=== PATIENT | female | born 1985 | race Caucasian/White ===

== ENCOUNTER → 2019-03-08 | Outpatient (CLI) | payer OTHER ==
[~2019-03-08] MED LIST: ACCUNEB SO1.25 MG/1 INH; ACETAMINOPHEN325 M1 PO; ADVAIR 100-501 EACH INH; ATIVAN1 MG PO; AZITHROMYCIN 2250 MG PO; DEPAKOTE ER500 MG PO; DEPO-PROVER150 MG/M1 IM; HALOPERIDO50 MG/1 M1 IM; HALOPERIDOL 5 MG5 MG PO; HEMORRHOID OINT60 G1 RECTAL; IBUPROFEN 600600 M1 PO; ICY HOT PAIN70.8 GM TOP; KEPPRA 500 MG500 M1 PO; LOPERAMIDE 2 MG2 MG PO; LORAZEPAM 1 MG T1 M1 PO; LORAZEPAM I2 MG/1 M2 IM; MOM PO; NAPROSYN500 MG PO; ONDANSETRON HCL4 M2 PO; PHENERGAN-CODE120 ML PO; PROAIR HFA8.5 GM INH; SENNA PO; TESSALON PERLE100 MG PO; TOPAMAX100 MG PO; TRAZODONE 150150 M1 PO; ZOLOFT25 MG PO
== END ==
LOC: SPEECH 10:03 → RAD 10:03
DX: G40.909 Epilepsy, unspecified, not intractable, without status epilepticus (principal); F31.9 Bipolar disorder, unspecified; Z88.6 Allergy status to analgesic agent; Z79.899 Other long term (current) drug therapy